=== PATIENT | female | born 1960 | race Caucasian/White ===

== ENCOUNTER 2022-04-26 11:45 | Emergency (ER) | payer BC, SELFPAY ==
[2022-04-26] VITALS (13 sets, daily range): BP systolic 109–158; BP diastolic 51–83; PULSE 55–98; RESP 16–20; TEMP 36.5; O2SAT 93–97; BMI 40.1
--- NOTE | 2022-04-26 12:54 | CRLHL7_ITS ---
For Patients: As a result of the Century Cures Act, medical imaging exams and procedure reports are released immediately into your electronic medical record. You may view this report before your referring provider. If you have questions, please contact your health care provider. INDICATION: Exertional dyspnea and mid chest pain TECHNIQUE: Chest 1 view. COMPARISON: None. FINDINGS: Cardiovascular and mediastinum: Heart size and vasculature are normal in caliber and appearance. Mediastinum is within normal limits. Lungs and pleural space: Lungs are clear. No sign of infiltrate or mass. No sign of pleural effusion. No pneumothorax. Bones and soft tissues: No significant findings. IMPRESSION: Unremarkable chest. Dictated by: Simone Way MD @ 04/26/2022 13:33:00 (Electronically Signed)
[2022-04-26 13:09] LABS: Troponin, Point-of-Care* 0.01 ng/ml (0.01-0.04)
[2022-04-26 13:13] LABS: Basophils Absolute Auto 0.05 K/uL (0.00-0.30); Basophils Percent Auto 0.8 % (0.0-3.0); Eosinophils Absolute Auto 0.09 K/uL (0.00-0.50); Eosinophils Percent Auto 1.5 % (0.0-7.0); Hematocrit 39.1 % (33.0-51.0); Hemoglobin* 12.8 gm/dL (12.0-16.0); Lymphocytes Percent Auto 45.3 % (20-44); Mean Corpuscular HGB Conc 33 gm/dL (32-36); Mean Corpuscular Hemoglobin 29 pg (26-34); Mean Corpuscular Volume 89 fL (80-100); Monocytes Percent Auto 7.3 % (0.0-11.0); Neutrophils Absolute Auto 2.66 K/uL (1.7-7.0); Neutrophils Percent Auto 45.1 % (42.0-72.0); Platelet Count* 293 K/uL (140-440); RDW Coefficient of Variation % 13.7 % (11.5-15.5); Red Blood Count 4.38 m/uL (4.00-5.20); White Blood Count* 5.91 K/uL (4.50-11.00)
[2022-04-26 13:19] LABS: Slide Review Reflex No
[2022-04-26 13:39] LABS: Albumin* 4.2 g/dL (3.3-5.0); Chloride* 104 mmol/L (96-114)
[2022-04-26 13:40] LABS: Sodium* 141 mmol/L (135-149)
[2022-04-26 13:42] LABS: Alkaline Phosphatase* 86 U/L (40-150); Aspartate Amino Transferase* 37 U/L (12-35); Bilirubin Direct* 0.2 mg/dL (0.0-0.5); Bilirubin Total* 0.4 mg/dL (0.1-1.5); Carbon Dioxide* 30 mmol/L (20-32); Creatinine* 0.7 mg/dL (0.5-1.5); Estimated Glomerular Filt Rate 99 ml/min; Total Protein* 6.8 g/dL (6.0-8.3)
[2022-04-26 13:43] LABS: Alanine Aminotransferase* 26 U/L (4-35); Blood Urea Nitrogen* 14 mg/dL (7-30); Calcium* 9.2 mg/dL (8.4-10.6); Glucose* 123 mg/dL (60-115); Potassium* 3.5 mmol/L (3.6-5.1)
[2022-04-26 13:44] LABS: D Dimer Quantitative* 0.38 ug/ml (0.00-0.50)
[2022-04-26 13:45] LABS: C Reactive Protein* 1.1 mg/dL (0.5-1.0)
[2022-04-26 13:50] LABS: NT Pro B Type NatriureticPept* 222 pg/mL
--- NOTE | 2022-04-26 13:50 | ED.NURSE ---
Ambulated patient around the unit with the pulse oximeter. Saturations remained 97-100% on RA.
[2022-04-26 13:53] LABS: Troponin I* 0.01 ng/mL (0.01-0.04)
--- NOTE | 2022-04-26 17:17 | ED.CHESTPAIN ---
HPI - Chest Pain General Chief Complaint: Chest Pain Stated Complaint: Chest pain Time Seen by Provider: 04/26/22 12:39 History of Present Illness HPI narrative: 62-year-old woman presenting to the emergency department complaint of chest discomfort on and off since end of this last January. Can be sharp. And says it is pleuritic. With further questioning though it sounds as though more the complaint is exertional dyspnea that has been building over this time. Has not had increased swelling in her legs. She does endorse a good deal of stressors including extended care for in-hospital. She says she was feeling feeding her chickens though yesterday or today and just was so short of breath with that level of exertion. Has been feeling discomfort also in her back (describes it is coming through her chest and notes a history of hiatal hernia) and now some discomfort in her left arm. Not lightheaded. No nausea. She says she is even losing some hair. Related Data Home Medications Medication Instructions Recorded Confirmed acetaminophen 325 mg tablet 650 mg PO Q4H PRN 04/26/22 04/26/22 albuterol 90 mcg/actuation aerosol 90 mcg inhalation BID PRN 04/26/22 04/26/22 inhaler bupropion HCl 150 mg 24 hr tablet, mg PO 04/26/22 extended release fluoxetine 20 mg capsule mg 04/26/22 furosemide 40 mg tablet 40 mg PO DAILY 04/26/22 04/26/22 gabapentin 600 mg tablet mg 04/26/22 hydrochlorothiazide 25 mg tablet mg 04/26/22 hydroxyzine HCl 25 mg tablet mg 04/26/22 indomethacin 50 mg capsule 50 mg PO BID PRN 04/26/22 04/26/22 lamotrigine 200 mg tablet mg 04/26/22 lidocaine 5 % topical patch patch 04/26/22 omeprazole 20 mg capsule,delayed mg 04/26/22 release tramadol 50 mg tablet mg 04/26/22 Allergies Allergy/AdvReac Type Severity Reaction Status Date / Time aspirin Allergy Hives Verified 04/26/22 12:15 cephalexin [From Keflex] Allergy Rash Verified 04/26/22 12:15 nickel Allergy Rash Verified 04/26/22 12:15 Penicillins Allergy Verified 04/26/22 12:15 procaine Allergy Hives Verified 04/26/22 12:15 shellfish derived Allergy Verified 04/26/22 12:15 epinephrine AdvReac Palpitation Verified 04/26/22 12:15 s levofloxacin [From Levaquin] AdvReac body aches Verified 04/26/22 12:15 lisinopril AdvReac Cough Verified 04/26/22 12:15 morphine AdvReac Nausea Verified 04/26/22 12:15 peanut AdvReac mouth sores Verified 04/26/22 12:15 Review of Systems Status of ROS Reports: 10 or more systems reviewed and unremarkable except as noted in History and below PFSH [facility] Social History Smoking Status: Former smoker What tobacco products do you use: cigarettes Years smoked: 20 Smoking quit date/years: >15 years ago Do you use any of these nicotine containing products: None Second hand tobacco smoke exposure: No How often do you have a drink containing alcohol: never AUDIT-C Alcohol total score: 0 Non-prescribed substance use: denies use service: No Exam Narrative Exam Narrative: Pleasant. NAD. Minier cut white hair is also dyed a Lavender color. Cranial nerves 2-12 look to be intact. Moving all extremities without difficulty. There is no extremity edema. No sensory deficits apparent. She is well-perfused peripherally. Oropharynx is unremarkable. Neck is supple without LA with midline trachea. No supraclavicular crepitus. Lungs appear to be clear with or least there was a little crepitus in the bases that cleared. Heart with a little elevated rate in a regular rhythm. Abdomen is soft and nontender. Overweight. She is rather sore to palpation in the upper rhomboid and midback para spinal musculature. Const Vital Signs, click to edit/add: Vital Signs - 24 hr 04/26/22 12:02 04/26/22 12:30 04/26/22 12:30 Temperature 97.7 F Pulse Rate Pulse Rate [Right Pulse Oximeter] 98 57 L Respiratory Rate 20 16 Blood Pressure Blood Pressure [Right Upper Arm] 158/83 H 134/69 Pulse Oximetry 97 95 95 Oxygen Delivery Method Room Air Room Air 04/26/22 13:00 04/26/22 13:22 04/26/22 13:24 Temperature Pulse Rate 55 L 58 L Pulse Rate [Right Pulse Oximeter] 59 L Respiratory Rate 16 Blood Pressure 109/59 L Blood Pressure [Right Upper Arm] 111/53 L Pulse Oximetry 93 97 95 Oxygen Delivery Method Room Air 04/26/22 13:30 04/26/22 13:32 04/26/22 13:45 Temperature Pulse Rate 58 L 57 L 58 L Pulse Rate [Right Pulse Oximeter] Respiratory Rate Blood Pressure 115/54 L Blood Pressure [Right Upper Arm] Pulse Oximetry 95 94 97 Oxygen Delivery Method 04/26/22 14:00 04/26/22 14:02 04/26/22 14:15 Temperature Pulse Rate 57 L 61 56 L Pulse Rate [Right Pulse Oximeter] Respiratory Rate Blood Pressure 129/51 L Blood Pressure [Right Upper Arm] Pulse Oximetry 96 95 95 Oxygen Delivery Method 04/26/22 14:30 04/26/22 14:32 Temperature Pulse Rate 60 55 L Pulse Rate [Right Pulse Oximeter] Respiratory Rate Blood Pressure 139/68 Blood Pressure [Right Upper Arm] Pulse Oximetry 95 95 Oxygen Delivery Method Documenting provider has reviewed patient's vital signs: yes Course Vital Signs Vital signs: Initial Vital Signs Temperature 97.7 F 04/26/22 12:02 Temperature Source Temporal Artery Scan 04/26/22 12:02 Pulse Rate 98 04/26/22 12:02 Respiratory Rate 20 04/26/22 12:02 Blood Pressure 158/83 H 04/26/22 12:02 Blood Pressure Mean 108 04/26/22 12:02 Blood Pressure Position Sitting 04/26/22 12:02 Pulse Oximetry 97 04/26/22 12:02 Oxygen Delivery Method 04/26/22 12:02 Vital Signs Temperature 97.7 F 04/26/22 12:02 Pulse Rate 98 04/26/22 12:02 Respiratory Rate 20 04/26/22 12:02 Blood Pressure 158/83 H 04/26/22 12:02 Pulse Oximetry 97 04/26/22 12:02 Oxygen Delivery Method 04/26/22 12:02 Temperature 97.7 F 04/26/22 12:02 Pulse Rate 55 L 04/26/22 14:32 Respiratory Rate 16 04/26/22 13:00 Blood Pressure 139/68 04/26/22 14:32 Pulse Oximetry 95 04/26/22 14:32 Oxygen Delivery Method 04/26/22 13:00 MDM - Chest Pain MDM Narrative Medical decision making narrative: Evaluation for potential cardiac event or vascular disruption. On monitor without event during time in the emergency department. Overall improved. Chest x-ray reviewed by me is with normal cardiac silhouette no infiltrative process. Pneumothorax evident. D-dimer was normal. Troponin negative. Normal proBNP. Exertional dyspnea of unclear etiology at this point. I do think is also experiencing extensive social stressors. Lab Data Attestation: I reviewed the patient's lab results. Labs: Lab Results 04/26/22 04/26/22 04/26/22 Range/Units 12:45 12:45 12:45 WBC 5.91 (4.50-11.00) K/uL RBC 4.38 (4.00-5.20) m/uL Hgb 12.8 (12.0-16.0) gm/dL Hct 39.1 (33.0-51.0) % MCV 89 (80-100) fL MCH 29 (26-34) pg MCHC 33 (32-36) gm/dL RDW Coeff of Margarita 13.7 (11.5-15.5) % Plt Count 293 (140-440) K/uL Neut % (Auto) 45.1 (42.0-72.0) % Lymph % (Auto) 45.3 H (20-44) % [place] % (Auto) 7.3 (0.0-11.0) % Eos % (Auto) 1.5 (0.0-7.0) % Baso % (Auto) 0.8 (0.0-3.0) % Neut # (Auto) 2.66 (1.7-7.0) K/uL Lymph # (Auto) 2.70 (0.90-2.90) K/uL [place] # (Auto) 0.40 (0.00-0.90) K/UL Eos # (Auto) 0.09 (0.00-0.50) K/uL Baso # (Auto) 0.05 (0.00-0.30) K/uL D-Dimer Quant (PE/DVT) 0.38 (0.00-0.50) ug/ml Sodium 141 (135-149) mmol/L Potassium 3.5 L (3.6-5.1) mmol/L Chloride 104 (96-114) mmol/L Carbon Dioxide 30 (20-32) mmol/L BUN 14 (7-30) mg/dL Creatinine 0.7 (0.5-1.5) mg/dL Estimated Creat Clear 73.80 Estimated GFR 99 ml/min Glucose 123 H (60-115) mg/dL Calcium 9.2 (8.4-10.6) mg/dL Total Bilirubin 0.4 (0.1-1.5) mg/dL Direct Bilirubin 0.2 (0.0-0.5) mg/dL AST 37 H (12-35) U/L ALT 26 (4-35) U/L Alkaline Phosphatase 86 (40-150) U/L Troponin I 0.01 (0.01-0.04) ng/mL C-Reactive Protein 1.1 H (0.5-1.0) mg/dL NT-Pro-B Natriuret Pep 222 pg/mL Total Protein 6.8 (6.0-8.3) g/dL Albumin 4.2 (3.3-5.0) g/dL POC Troponin I (0.01-0.04) ng/ml 04/26/22 04/26/22 Range/Units 13:07 13:08 WBC (4.50-11.00) K/uL RBC (4.00-5.20) m/uL Hgb (12.0-16.0) gm/dL Hct (33.0-51.0) % MCV (80-100) fL MCH (26-34) pg MCHC (32-36) gm/dL RDW Coeff of Margarita (11.5-15.5) % Plt Count (140-440) K/uL Neut % (Auto) (42.0-72.0) % Lymph % (Auto) (20-44) % [place] % (Auto) (0.0-11.0) % Eos % (Auto) (0.0-7.0) % Baso % (Auto) (0.0-3.0) % Neut # (Auto) (1.7-7.0) K/uL Lymph # (Auto) (0.90-2.90) K/uL [place] # (Auto) (0.00-0.90) K/UL Eos # (Auto) (0.00-0.50) K/uL Baso # (Auto) (0.00-0.30) K/uL D-Dimer Quant (PE/DVT) (0.00-0.50) ug/ml Sodium (135-149) mmol/L Potassium (3.6-5.1) mmol/L Chloride (96-114) mmol/L Carbon Dioxide (20-32) mmol/L BUN (7-30) mg/dL Creatinine (0.5-1.5) mg/dL Estimated Creat Clear Estimated GFR ml/min Glucose (60-115) mg/dL Calcium (8.4-10.6) mg/dL Total Bilirubin (0.1-1.5) mg/dL Direct Bilirubin (0.0-0.5) mg/dL AST (12-35) U/L ALT (4-35) U/L Alkaline Phosphatase (40-150) U/L Troponin I Cancelled (0.01-0.04) ng/mL C-Reactive Protein (0.5-1.0) mg/dL NT-Pro-B Natriuret Pep pg/mL Total Protein (6.0-8.3) g/dL Albumin (3.3-5.0) g/dL POC Troponin I 0.01 (0.01-0.04) ng/ml ECG Data Attestation: I personally reviewed and interpreted this ECG as follows: (Bradycardia and right bundle branch block. Do not see prior for comparison. Rate of 57.) Discharge Plan Discharge Clinical Impression: Exertional dyspnea, Other social stressor, Upper back pain Patient Disposition: Home w/ Parent or Adult Condition: Improved Additional Instructions: Please call today yet to schedule with your primary care provider on recommendation from the emergency department to finish a cardiac workup/workup for exertional dyspnea. This may include a cardiac echo. Return for persistent increased shortness of breath, chest pain, associated lightheadedness or nausea. See handout for ideas of stretches and exercises for the upper back. I think this will help you feel better doing these couple of times a day. Do try to get in a little exercise every day as you can tolerate. You certainly are handling a bit of stress at the moment and I think this might help. Try to get quality and regular sleep. Prescriptions: No Action gabapentin 600 mg tablet lamotrigine 200 mg tablet tramadol 50 mg tablet Label Comments: 1-2 TABLET BY MOUTH EVERY 4 TO 6 HOURS NEEDED FOR PAIN, TAKE 2ND LINE TO OTC OPTIONS FOR BREAKTHROUGH PAIN. omeprazole 20 mg capsule,delayed release(DR/EC) hydroxyzine HCl 25 mg tablet Label Comments: 1-2 TABLET EVERY 6 HOURS NEEDED FOR PAIN/ANXIETY hydrochlorothiazide 25 mg tablet fluoxetine 20 mg capsule bupropion HCl 150 mg tablet extended release 24 hr PO acetaminophen 325 mg tablet 650 mg PO Q4H PRN albuterol 90 mcg/actuation aerosol 90 mcg inhalation BID PRN indomethacin 50 mg capsule 50 mg PO BID PRN Rx Instructions: administer with food or milk furosemide 40 mg tablet 40 mg PO DAILY lidocaine 5 % adhesive patch,medicated Label Comments: APPLY ON DRY, CLEAN, HAIRLESS SKIN. APPLY 1 PATCH TO PAINFUL AREA OF SKIN FOR UP TO TO 12 HOURS WITHIN 24 HOUR PERIOD. Stand Alone Forms: [employer] Info Instructions
== END 2022-04-26 15:03 | disposition home or self-care (01) ==
PROVIDERS: Emergency Provider Family Medicine; PCP Family Medicine
DX: R06.09 Other forms of dyspnea (principal); F43.9 Reaction to severe stress, unspecified; M54.89 Other dorsalgia
CPT/HCPCS: 36415; 71045; 80048; 80076; 83880; 84484; 85025; 85379; 86140; 93005; 94761; 99284; 99285